=== PATIENT | female | born 2000 | race African-American/Black ===

== ENCOUNTER 2025-06-21 10:18 | Emergency (ER) | payer SELFPAY ==
[2025-06-21 10:39] VITALS: BP 120/74
--- NOTE | 2025-06-21 12:23 | ED.GENMED ---
History of Present Illness
General
Chief Complaint: Musculo-Skeletal Complaint
Time Seen by Provider: 06/21/25 11:31
History of Present Illness
History of Present Illness:
24-year-old female without significant past medical history presenting for spasm to the right forearm. Patient was at work prior to arrival, was writing and had a few minutes of arm spasm which has subsequently resolved. Notes that she had
something similar about a year ago which improved after massaging her hand. Does note history of hand surgery in the past. Denies any present symptoms. Denies any injury to the arm. Denies any numbness or tingling. Denies chest pain or
difficulty breathing. Denies any significant neck pain. 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 Denies additional acute medical complaints
Phy Exam
Physical Exam
Physical Exam:
General: Well-appearing, no clinical signs of dehydration, nontoxic and in no acute distress
HEENT: protecting airway
Neck: appears supple
CV: Normal heart rate
Resp: No accessory muscle use, no increased work of breathing
Abd: No distention
Extremities: No deformities, no swelling, no erythema, pulses and sensation intact. Range of motion intact. No tenderness
Neuro: alert, no focal neurologic deficit
: deferred
Rectal: deferred
Psych: Normal affect
Skin: Intact
Course
Vital Signs
Initial and Last Documented VS:
Initial Vital Signs
Temp Pulse Resp BP Pulse Ox
98.2 F 78 16 120/74 98
06/21/25 10:39 06/21/25 10:39 06/21/25 10:39 06/21/25 10:39 06/21/25 10:39
Last Documented Vital Signs
Temp Pulse Resp BP Pulse Ox
98.2 F 78 16 120/74 98
06/21/25 10:39 06/21/25 10:39 06/21/25 10:39 06/21/25 10:39 06/21/25 10:39
MDM/Problems Addressed
MDM/Problems Addressed:
24-year-old female presenting to the emergency department for episode of arm cramping which is since resolved. Vital signs on arrival are normal.
On exam patient is resting comfortably, no acute distress or discomfort. Patient currently asymptomatic with unremarkable workup. No swelling or deformity to the arm. No report of trauma or concern for fracture. No neurovascular compromise. No
active spasming. Suspect mild self-resolved muscle spasm, patient notes that she was writing with her right hand at the time. Likely positional. No indication for advanced imaging. No concern for electrolyte abnormality or severe dehydration
with hemodynamic stability. Feel stable for discharge with outpatient follow-up. Return precautions discussed and patient verbalized understanding
*Pulse Oximetry
SaO2: 98
Oxygen Mode of Delivery: Room air
Patient hypoxic: no
*Critical Care Note
Total Time (30-74mins, 75-104mins- exclusive of procedures): Not Applicable
ED Attending Note
-
Portions of this chart may have been created with voice recognition software.� Occasional wrong word or��sound alike� substitutions may have occurred due to the inherent limitations of voice recognition software.
Discharge Plan
Departure
Referrals:
NONE,* [Family Provider, Internal Medicine]
Interventions
Interventions:
*Risk Screen - Suicide Last Done: 06/21/25 10:39
*General Assessment Last Done: 06/21/25 11:06
*Neglect/Abuse Screening Last Done: 06/21/25 10:39
*ED- Fall Risk Assessment Last Done: 06/21/25 11:06
*ED COVID-19 Vaccine History Last Done: 06/21/25 11:06
*ED Influenza Vaccine History Last Done: 06/21/25 11:06
ED-Musculoskeletal Assessment Last Done: 06/21/25 11:06
Discharge Date and Time
Print Language: OCCITAN
== END 2025-06-21 12:34 | disposition home or self-care (01) ==
LOC: EMR 10:18
PROVIDERS: EMERGENCY PHYSICIAN Student in an Organized Health Care Education/Training Program
DX: M62.838 Other muscle spasm (principal)
CPT/HCPCS: 99281